=== PATIENT | male | born 1985 | race Caucasian/White ===

== ENCOUNTER 2017-06-02 22:13 | Inpatient (IN) | payer MEDICAID ==
[~2017-06-02] VITALS: Ht 177.8 cm; Wt 67.1 kg
[2017-06-03 00:30] LABS: BASOPHIL % 0.2 % (0-2); PLATELET COUNT 150 x10^3mcL (130-400); RED CELL DISTRIBUTION WIDTH 12.4 % (11.5-14.5)
[2017-06-03 00:31] LABS: CALCIUM 9.5 mg/dL (8.5-10.1); CARBON DIOXIDE 25.9 mmol/L (21-32); CHLORIDE SERUM 99 mmol/L (98-107); GFR1 > 60 mL/min; GLUCOSE SERUM 337 mg/dL (74-106); POTASSIUM SERUM 4.1 mmol/L (3.5-5.1); SODIUM SERUM 139 mmol/L (136-145)
[2017-06-03 00:36] LABS: ALBUMIN 4.5 g/dL (3.4-5.0); ALKALINE PHOSPHATASE 90 U/L (46-116); ALT/SGPT 22 U/L (16-63); AMYLASE 38 U/L (25-115); AST/SGOT 19 U/L (15-37); BILIRUBIN TOTAL 0.8 mg/dL (0.20-1.00); LIPASE 44 IU/L (73-393); TOTAL PROTEIN, SERUM 8.2 g/dL (6.4-8.2)
[2017-06-03] MEDS ORDERED: AUTOJECT 21 EACH (03:29)
[2017-06-03] MEDS ORDERED: HUMULIN N KW100 U/ML SQ (03:42)
[2017-06-03] MEDS ORDERED: RELION HUMUL100 U/M2 (03:56)
[2017-06-03 04:09] LABS: MAGNESIUM 1.9 mg/dL (1.8-2.4); PHOSPHOROUS 2.8 mg/dL (2.5-4.9)
[2017-06-03 04:10] LABS: CHOLESTEROL/HDL RATIO 2.4
[2017-06-03 04:37] VITALS: BP 127/65
[2017-06-03 06:18] LABS: PLATELET COUNT 154 x10^3mcL (130-400); RED CELL DISTRIBUTION WIDTH 12.3 % (11.5-14.5)
[2017-06-03 06:38] LABS: CALCIUM 9.1 mg/dL (8.5-10.1); CARBON DIOXIDE 22.2 mmol/L (21-32); CHLORIDE SERUM 98 mmol/L (98-107); CREATININE SERUM 0.9 mg/dL (0.7-1.3); GFR1 > 60 mL/min; GLUCOSE SERUM 311 mg/dL (74-106); POTASSIUM SERUM 4.1 mmol/L (3.5-5.1); SODIUM SERUM 136 mmol/L (136-145)
[2017-06-03 06:41] LABS: BASOPHIL % 0 % (0-2)
[2017-06-03 09:03] VITALS: BP 102/57
[2017-06-03 12:41] VITALS: BP 121/75
[2017-06-03 14:25] VITALS: BP 114/73
[2017-06-03 15:21] LABS: UA SPECIFIC GRAVITY 1.025 (1.005-1.035); microscopic required? YES; urine erythrocyte NEGATIVE (NEGATIVE)
[2017-06-03 15:30] LABS: AMPHETAMINE QUAL UR NONE DETECTED (NEG <=1000)
[2017-06-03 16:26] VITALS: BP 109/73
[2017-06-03 21:20] VITALS: BP 103/68
[2017-06-04 05:30] VITALS: BP 109/67
[2017-06-04 06:09] LABS: BASOPHIL % 0.4 % (0-2); PLATELET COUNT 137 x10^3mcL (130-400); RED CELL DISTRIBUTION WIDTH 12.7 % (11.5-14.5)
[2017-06-04 06:30] LABS: CALCIUM 8.3 mg/dL (8.5-10.1); CARBON DIOXIDE 28.6 mmol/L (21-32); CHLORIDE SERUM 104 mmol/L (98-107); CREATININE SERUM 0.8 mg/dL (0.7-1.3); GFR1 > 60 mL/min; GLUCOSE SERUM 129 mg/dL (74-106); POTASSIUM SERUM 3.4 mmol/L (3.5-5.1); SODIUM SERUM 140 mmol/L (136-145)
[2017-06-04 10:10] VITALS: BP 122/86
[2017-06-04 14:31] VITALS: BP 115/74
[2017-06-04 17:50] VITALS: BP 106/70
[2017-06-04 22:04] VITALS: BP 125/82
[2017-06-05 05:52] VITALS: BP 111/70
[2017-06-05] MEDS ORDERED: KEP500 PO (09:33)
[2017-06-05] MEDS ORDERED: LEXAPRO10 MG PO (09:34)
[2017-06-05] MEDS ORDERED: LEVEMIR100 U/M1 SQ (09:54)
[2017-06-05] MEDS ORDERED: HUMULIN R100 U/1 M1 SC (10:18)
[2017-06-05 10:44] VITALS: BP 108/68
== END 2017-06-05 13:21 | disposition home or self-care (01) | DRG 48 ==
LOC: ED 22:13 → DU 06-03 02:43
PROVIDERS: Emergency Medicine; Family Medicine; ADMIT Family Medicine
DX: E10.43 Type 1 diabetes mellitus with diabetic autonomic (poly)neuropathy (principal); D68.69 Other thrombophilia; E10.59 Type 1 diabetes mellitus with other circulatory complications; R56.9 Unspecified convulsions; E10.65 Type 1 diabetes mellitus with hyperglycemia; K31.84 Gastroparesis; F32.9 Major depressive disorder, single episode, unspecified; I10 Essential (primary) hypertension; R74.0 Nonspecific elevation of levels of transaminase and lactic acid dehydrogenase [LDH]; Z79.4 Long term (current) use of insulin; Z68.21 Body mass index [BMI] 21.0-21.9, adult
CPT/HCPCS: 82962; C9113; J0696; J1815; J1885; J2270; J2405; J2765; J3480; J7030; Q0092

== ENCOUNTER 2017-11-28 20:31 | Emergency (ER) | payer MEDICAID ==
[~2017-11-28] VITALS: Ht 180.3 cm; Wt 72.1 kg
[~2017-11-28 20:31] MED LIST: AUTOJECT 21 EACH; HUMULIN N KW100 U/ML SQ; HUMULIN R100 U/1 M1 SC; KEP500 PO; LEVEMIR100 U/M1 SQ; LEXAPRO10 MG PO; RELION HUMUL100 U/M2
[2017-11-28 20:35] VITALS: Ht 180.3 cm; Wt 72.1 kg
[2017-11-29 00:22] VITALS: BP 128/69
== END 2017-11-29 00:22 | disposition home or self-care (01) ==
LOC: ED 20:31
DX: S92.312A Displaced fracture of first metatarsal bone, left foot, initial encounter for closed fracture (principal); X58.XXXA Exposure to other specified factors, initial encounter; Y93.89 Activity, other specified; Y99.8 Other external cause status; Y92.89 Other specified places as the place of occurrence of the external cause
CPT/HCPCS: Q0092